=== PATIENT | male | born 1955 | race Caucasian/White ===

== ENCOUNTER 2016-08-11 15:13 | Inpatient (IN) | payer OTHER ==
[~2016-08-11] VITALS: Ht 193 cm; Wt 90.7 kg
--- NOTE | 2016-08-12 10:30 | NUR ---
PRE ASSESSMENT NOTE: 60 yo male admitted to [facility] with opiate and benzo dependence. Pt is alert and oriented X4. Color good, skin warm and dry. Respirations even and unlabored. Vital signs: B/P 111/72 P: 58 RR: 16 T: 98.2 Pulse OX: 100% NKA No seizure history Substance use: Klonopin 4-5 1mg tabs per day X 1 year Last use today 1mg this AM Oxycontin 20mg tabs 7-10 pills per day X 1year Last use 17 Denies ETOH use and does not smoke
[2016-08-12] MEDS ORDERED: VITA150T PO (10:57)
[2016-08-12] MEDS ORDERED: BETA60LO5 TP (10:57)
[2016-08-12] MEDS ORDERED: CLON1TAB4 PO (10:57)
[2016-08-12] MEDS ORDERED: ENAL10TA PO (10:57)
[2016-08-12] MEDS ORDERED: OXYC20TA58 PO (10:57)
[2016-08-12] MEDS ORDERED: UBID100C13 PO (10:57)
[2016-08-12] MEDS ORDERED: WARF4TAB6 PO (10:57)
[2016-08-12] MEDS ORDERED: ASCO-371 PO (10:57)
[2016-08-12] MEDS ORDERED: DULO30CA2 PO (10:57)
[2016-08-12] MEDS ORDERED: CARV25TA PO (10:57)
[2016-08-12] MEDS ORDERED: OMEP20CA10 PO (10:57)
[2016-08-12] MEDS ORDERED: TEST1.25 TD (10:57)
[2016-08-12] MEDS ORDERED: MULT-331 PO (10:57)
[2016-08-12] MEDS ORDERED: GABA-532 PO (10:57)
[2016-08-12] MEDS ORDERED: GUAI-175 PO (10:57)
[2016-08-12] MEDS ORDERED: TRAZ-147 PO (10:57)
[2016-08-12] MEDS ORDERED: PROC25SU2 RC (10:59)
--- NOTE | 2016-08-12 11:00 | NUR ---
ADMISSION NOTE: Pt is a 60 yo male admitted under the care of Dr. Moreira for opiate and benzo dependence. Pt is alert and oriented X4. Color good, skin warm and dry. Respirations even and unlabored. VS: B/P 111/72 P: 58 T: 98.2 RR: 16 Pulse OX: 100% Initial CIWA 5 COWS 4. Pt does not appear to be withdrawing at this time. Pt is 6 feet 4 inches tall. 200 pounds. Medical history of anxiety and heart valve replacement 9 years ago, for which, he is on Coumadin. Also had hand and right arm surgery "years ago" while playing football. Denies a seizure history. NKA Denies having a PCP. States he goes to a [facility] [place] clinic. Skin is intact. Denies having a family history of substance abuse. Substance use: Klonopin for 9 years. For past year has been taking 4-5 1mg pills/day Last use 1mg this AM Oxycontin for 6 year. For past year 7-10 20mg pills/day. Last use 40mg 08-12-16 Denies ETOH use Does not smoke
[2016-08-12] MEDS ORDERED: ACETAMINOPHEN 325 MG TABLET PO PRN (11:30)
[2016-08-12] MEDS ORDERED: ONDANSETRON 4 MG/2 ML VIAL IM PRN (11:30)
[2016-08-12] MEDS ORDERED: LOPERAMIDE HCL 2 MG CAPSULE PO PRN ×2 (11:30)
[2016-08-12] MEDS ORDERED: MAGNESIUM HYDROXIDE 30 ML LIQUID UDC PO PRN (11:30)
[2016-08-12] MEDS ORDERED: LORAZEPAM 1 MG TABLET PO PRN ×2 (11:30)
[2016-08-12] MEDS ORDERED: LORAZEPAM 2 MG/1 ML VIAL IM PRN (11:30)
[2016-08-12] MEDS ORDERED: MIRALAX 17 GM POWD.PACK PO PRN (11:30)
[2016-08-12] MEDS ORDERED: IBUPROFEN 600 MG TABLET PO PRN (11:30)
[2016-08-12] MEDS ORDERED: MAG HYDROX/AL HYDROX/SIMETH 30 ML LIQUID UDC PO PRN (11:30)
[2016-08-12] MEDS ORDERED: diphenhydrAMINE 50 MG CAPSULE PO PRN (11:30)
[2016-08-12] MEDS ORDERED: DICYCLOMINE HCL 20 MG TABLET PO PRN (11:30)
[2016-08-12 12:12] LABS: *AMPHETAMINE, URINE NEGATIVE (NEGATIVE); *BARBITURATE, URINE NEGATIVE (NEGATIVE); *CANNABINOID, URINE NEGATIVE (NEGATIVE); *COCCAINE, URINE NEGATIVE (NEGATIVE); *OPIATE, URINE POSITIVE (NEGATIVE); *PHENCYCLIDINE SCREEN,URINE NEGATIVE (NEGATIVE)
--- NOTE | 2016-08-12 13:00 | NUR ---
Clonidine 0.1mg po prn and Robaxin 750mg po prn given for withdrawal symptoms.
[2016-08-12 13:07] LABS: BASOPHILS # (AUTO) 0.1 K/uL (0.0-8.0); EOSINOPHILS # (AUTO) 0.2 K/uL (0.0-0.7); EOSINOPHILS % (AUTO) 2.7 % (0.0-7.0); HEMATOCRIT 40.3 % (40-50); LYMPHOCYTES # (AUTO) 1.5 K/UL (0.8-4.8); LYMPHOCYTES % (AUTO) 22.4 % (20.5-51.5); MEAN CORPUSCULAR HEMOGLOBIN 28.4 UUG (27.0-31.0); MEAN CORPUSCULAR HGB CONC 32 g/dL (32.0-37.0); MEAN CORPUSCULAR VOLUME 87.9 FL (82.0-92.0); MONOCYTES # (AUTO) 0.4 K/UL (0.1-1.30); MONOCYTES % (AUTO) 5.9 % (0.0-11.0); NEUTROPHILS # (AUTO) 4.7 K/UL (1.8-8.9); PLATELET COUNT (AUTO) 225 K/UL (150-450); RED BLOOD CELL COUNT(AUTO) 4.59 MIL/UL (4.7-6.1); WHITE BLOOD COUNT (AUTO) 6.9 K/UL (4.0-11.2)
[2016-08-12] MEDS: METHOCARBAMOL 750 MG TABLET PO PRN ×2 (13:09→21:24)
[2016-08-12] MEDS: CLONIDINE HCL 0.1 MG TABLET PO PRN (13:09)
[2016-08-12 13:35] LABS: ETHANOL < 3 MG/DL (0-0)
[2016-08-12 13:39] LABS: ALANINE AMINOTRANSFERASE 17 U/L (16-63); ALBUMIN 3.6 g/dL (3.4-5.0); ALKALINE PHOSPHATASE 77 U/L (50-136); ASPARTATE AMINOTRANSFERASE 19 U/L (15-37); BILIRUBIN,TOTAL 0.3 mg/dL (0.2-1.0); CALCIUM 8.9 mg/dL (8.5-10.1); CARBON DIOXIDE 27 mmol/L (21-32); CHLORIDE 107 mmol/L (98-107); CREATININE 1.2 mg/dL (0.6-1.3); GFR 62 mL/min (>60); GLUCOSE 110 mg/dL (74-106); POTASSIUM 3.4 mmol/L (3.5-5.1); SODIUM SERUM 143 mmol/L (136-145); TOTAL PROTEIN, SERUM 6.7 g/dL (6.4-8.2); UREA NITROGEN, BLOOD 14 mg/dL (7-18)
--- NOTE | 2016-08-12 14:00 | NUR ---
Pt states feels "slightly improved" after Robaxin and Clonidine prn.
[2016-08-12 14:07] VITALS: BP 127/67
[2016-08-12 14:14] LABS: HIV-1 p24 ANTIGEN NON REACTIVE (NONREACTIVE); HIV-1/2 ANTIBODY NON REACTIVE (NONREACTIVE)
--- NOTE | 2016-08-12 15:00 | NUR ---
Pt sleeping at this time.
[2016-08-12] MEDS: GABAPENTIN 300 MG CAPSULE PO SCH (15:39)
[2016-08-12] MEDS: BUPRENORPHINE HCL 2 MG TAB.SUBL SL PRN (16:33)
[2016-08-12] MEDS: CARVEDILOL 25 MG TABLET PO SCH (16:38)
--- NOTE | 2016-08-12 16:41 | NUR ---
COWS 16 and CIWA 17 Pt c/o stomach cramps. sweating, chills, muscle aches and anxiety. Subutex 4mg sl prn and Ativan 2mg po prn administered.
[2016-08-12] MEDS ORDERED: WARFARIN SODIUM 4 MG TABLET PO SCH (17:00)
--- NOTE | 2016-08-12 17:05 | NUR ---
VTE 2 Pumps at bedside
--- NOTE | 2016-08-12 17:35 | NUR ---
Pt feels improved after Subutex and Ativan prn. Repeat COWS 10 and CIWA 12
[2016-08-12 17:41] VITALS: BP 130/72
[2016-08-12] MEDS ORDERED: TRAZODONE 100 MG TABLET PO PRN (17:45)
--- NOTE | 2016-08-12 18:50 | NUR ---
END OF SHIFT NOTE: Report given to night manager nurse .Pt is a 60 yo male admitted under the care of Dr. Moreira for opiate and benzo dependence. Pt is alert and oriented X4. Color good, skin warm and dry. Respirations even and unlabored. Subutex 4mg sl prn and Ativan 2mg po prn administered @ 1640. Pt to start Subutex and Ativan tapers in AM. Safety precautions observed. Call light within reach.
--- NOTE | 2016-08-12 19:15 | NUR ---
Start of Shift Note: Patient is a 60 y/o male admitted today 08/12/16 for Opiate and Benzo dependence. Patient reported using Klonopin 4-6mg daily and Oxycontin 140-200mg daily for 1 year. Patient has Anxiety and past medical history of Heart Valve replacement 9 years ago. Fall & Seizure precaution. Patient is on a regular diet with no known food and drug allergies. Full code status. Patient to be started on Ativan and Subutex taper. Patient was given PRN Subutex, Ativan, Clonidine, Robaxin & Bentyl during day shift. Patient's last COWS 10 CIWA 12. Patient is alert & oriented x4. No shortness of breath noted. Respiration even & unlabored. Abdomen soft & non-distended. Pt complains of nausea with no episode of vomiting noted. Patient with complaints of 5/10 body aches, runny nose, stomach cramps, & mild headache. Patient appears flushed and anxious. Slight bilateral hand tremors noted. Pt denies hallucinations. Safety precautions are in place. Bed locked in lowest position. Both side rails up. Call light within pt's reach. Will continue to monitor.
[2016-08-12 20:00] VITALS: BP 141/77
[2016-08-12] MEDS ORDERED: GABAPENTIN 300 MG CAPSULE PO SCH (21:00)
[2016-08-12] MEDS ORDERED: LORAZEPAM 1 MG TABLET PO SCH (21:00)
[2016-08-12] MEDS: ONDANSETRON ODT 4 MG TAB.RAPDIS SL PRN (21:24)
[2016-08-12] MEDS: ASPIRIN/ACETAMINOPHEN/CAFFEINE TABLET PO PRN (21:24)
--- NOTE | 2016-08-12 21:24 | NUR ---
PRN Administration Patient complains of mild headache, 5/10 body aches & nausea. No episode of vomiting noted. Patient appears restless in bed. PRN Excedrin, Robaxin & Zofran administered as ordered. Will continue to monitor.
--- NOTE | 2016-08-12 22:24 | NUR ---
PRN Reassessment Patient verbalized improved nausea & slight relief in body discomfort and headache. Will continue to monitor patient.
--- NOTE | 2016-08-12 22:49 | NUR ---
Prn Administered Patient complains of nausea, chills, stomach cramps, body discomfort, runny nose, moist eyes & anxiety. Patient appears restless & anxious. Bilateral hand tremors noted. COWS 12 noted. B/P 123/71, HR 71 noted. Pt also requested for medication to help him sleep. PRN Subutex & Trazodone administered as ordered. Will reassess in 1 hour. Will continue to monitor patient.
[2016-08-12 22:58] VITALS: BP 123/71
[2016-08-12] MEDS ORDERED: POTASSIUM CHLORIDE 20 MEQ TAB.PRT.SR PO ONE (23:00)
--- NOTE | 2016-08-12 23:49 | NUR ---
PRN Reassessment Patient lying in bed with eyes closed. Patient appears comfortable with no s/s of distress noted. Respiration even & unlabored. COWS 3 CIWA 2 noted at this time. Will continue to monitor patient.
[2016-08-13 04:00] VITALS: BP 119/58
[2016-08-13] MEDS: BUPRENORPHINE HCL 2 MG TAB.SUBL SL PRN (04:50)
[2016-08-13] MEDS: HYDROXYZINE PAMOATE 25 MG CAPSULE PO PRN (05:26)
[2016-08-13] MEDS: METHOCARBAMOL 750 MG TABLET PO PRN ×2 (05:26→21:47)
--- NOTE | 2016-08-13 05:26 | NUR ---
PRN Administration Patient complains of body aches and anxiety. PRN Robaxin & Vistaril administered as ordered. Will continue to monitor.
[2016-08-13] MEDS: PANTOPRAZOLE SODIUM 40 MG TABLET.DR PO SCH (06:49)
--- NOTE | 2016-08-13 06:56 | NUR ---
Start of Shift Note: Patient is a 60 y/o male admitted for Opiate and Benzo dependence. Patient has Anxiety & Heart Valve Replacement. Patient is on a regular diet with no known food and drug allergies. Patient started on Ativan taper last night and to be started on a Subutex taper today at 9am. Pt was complaining of withdrawals last night with a COWS score of 12. PRN Subutex was given last night @ 2249 and was effective. Pt reported that medication was effective in controlling his withdrawals symptoms. Pt was also given PRN Excedrin, Robaxin x2, Vistaril, & Trazodone and were effective. Last COWS 5 CIWA 5. Pt remained stable and vitals remains WNL. Pt was able to sleep for a total of 5 hours. Pt consumed 1447ml of fluids. Voided 2x with no bowel movement noted. All needs attended & met. Safety precautions are in place. Will continue to monitor patient. Addendum: 08/14/16 at 0530 by AURY EVANS RN END OF SHIFT
--- NOTE | 2016-08-13 07:30 | NUR ---
Start of shift note; Received report from night nurse. Patient is a 60 year old male admitted on 08/12/16 for Benzo and Opiate dependence. Patient was placed on Subutex and Ativan taper to start today. Patient reported history of anxiety and heart Valve replacement 9 years ago, currently on Coumadin. Patient received RPN medications last night, all noted to be effective. Patient last COWS is 6 and last CIWA is 4 at 0400. NKA, regular diet and on a regular diet. Patient is on fall and seizure precaution. Bed in lowest position, call light within reach. Will continue to monitor patient.
[2016-08-13 08:00] VITALS: BP 113/67
[2016-08-13] MEDS: GABAPENTIN 300 MG CAPSULE PO SCH ×3 (08:48→21:47)
[2016-08-13] MEDS: DOCUSATE SODIUM 250 MG CAPSULE PO SCH (08:49)
[2016-08-13] MEDS: BUPRENORPHINE HCL 2 MG TAB.SUBL SL SCH ×4 (08:49→21:47)
[2016-08-13] MEDS: MULTIVITAMINS,THERAPEUTIC TABLET PO SCH (08:49)
[2016-08-13] MEDS: CARVEDILOL 25 MG TABLET PO SCH ×2 (08:49→17:27)
[2016-08-13] MEDS: LORAZEPAM 1 MG TABLET PO SCH ×3 (08:49→21:46)
[2016-08-13] MEDS ORDERED: ENALAPRIL 10 MG TABLET PO SCH (09:00)
[2016-08-13] MEDS ORDERED: 5 DAY TAPER BUPRENORPHINE -SERENITY PROTOCOL SL PRN (09:00)
[2016-08-13] MEDS ORDERED: Medication Not On Formulary EA (Omeprazole 1 CAP) PO SCH (09:00)
[2016-08-13] MEDS ORDERED: TUBERCULIN,PURIF.PROT.DERIV. 5 TU/0.1 ML TEST ID ONE (09:00)
[2016-08-13] MEDS ORDERED: WARFARIN SODIUM 4 MG TABLET PO SCH ×3 (09:00→17:00)
[2016-08-13] MEDS: DULOXETINE 30 MG CAPSULE.DR PO SCH (09:49)
[2016-08-13 12:00] VITALS: BP 140/61
[2016-08-13 12:07] LABS: HCV AB <0.1 s/co ratio (0.0-0.9); HEPATITIS B CORE AB, IgM Negative (Negative); HEPATITIS B SURFACE AG Negative (Negative)
[2016-08-13] MEDS: ASPIRIN/ACETAMINOPHEN/CAFFEINE TABLET PO PRN ×2 (12:59→21:47)
--- NOTE | 2016-08-13 13:04 | NUR ---
PRN medication; Patient is complaining of migraine headache. PRN Excedrin given as per MD order. Will continue to monitor for effectiveness of medication.
--- NOTE | 2016-08-13 14:04 | NUR ---
Re-assessment; Patient denies headache at this time. Will continue to monitor patient. Addendum: 08/13/16 at 1525 by KELSY VILCHIS LVN PRN medication is effective.
[2016-08-13] MEDS ORDERED: POTASSIUM CHLORIDE 20 MEQ TAB.PRT.SR PO ONE (14:15)
--- NOTE | 2016-08-13 14:22 | NUR ---
K-dur order; ordered K-DUR 20meq to supplement patient's potassium. Order given to patient.
[2016-08-13 16:00] VITALS: BP 129/72
[2016-08-13] MEDS ORDERED: WARFARIN SODIUM 3 MG TABLET PO SCH (17:00)
[2016-08-13] MEDS ORDERED: WARFARIN SODIUM 5 MG TABLET PO SCH (17:00)
--- NOTE | 2016-08-13 17:50 | NUR ---
Therapist informed client of group therapy times. Client refused to come to group because he is not feeling well.
--- NOTE | 2016-08-13 18:50 | NUR ---
End of shift note; Patient is AOX4.Patient is a 60 year old male admitted on 08/12/16 for Benzo and Opiate dependence. Patient was placed on Subutex and Ativan taper to start today. Patient reported history of anxiety and heart Valve replacement 9 years ago, currently on Coumadin. Patient last COWS is 8 and last CIWA is 7 at 1600. NKA, regular diet and on a regular diet. Patient is on fall and seizure precaution. Bed in lowest position, call light within reach. Patient remained compliant with treatment plan, medications were effective in reducing withdrawal symptoms. Met all needs.
--- NOTE | 2016-08-13 19:15 | NUR ---
Start of Shift Note: Patient is a 60 y/o male admitted today 08/12/16 for Opiate and Benzo dependence. Patient reported using Klonopin 4-6mg daily and Oxycontin 140-200mg daily for 1 year. Patient has Anxiety and past medical history of Heart Valve replacement 9 years ago. Fall & Seizure precaution. Patient is on a regular diet with no known food and drug allergies. Full code status. Patient is on Ativan and Subutex taper and tolerating well. Patient was given PRN Excedrin during day shift. Patient's last COWS 8 CIWA 7. Patient is alert & oriented x4. No shortness of breath noted. Respiration even & unlabored. Abdomen soft & non-distended. Pt complains of nausea with no episode of vomiting noted. Patient with complaints of 5/10 body aches, & mild headache. Slight bilateral hand tremors noted. Pt denies hallucinations. Safety precautions are in place. Bed locked in lowest position. Both side rails up. Call light within pt's reach. Will continue to monitor.
--- NOTE | 2016-08-13 19:27 | NUR ---
Communication: Pt requested to increase his Trazodone dose for sleep because it was ineffective last night. Pt currently on 100mg Trazodone PO HSPRN. MD made aware with new order to increase dose to 200mg Trazodone PO HSPRN. New orders noted and carried out.
[2016-08-13] MEDS ORDERED: TRAZODONE 100 MG TABLET PO PRN (19:30)
[2016-08-13 20:00] VITALS: BP 132/74
[2016-08-13] MEDS: ONDANSETRON ODT 4 MG TAB.RAPDIS SL PRN (21:47)
--- NOTE | 2016-08-13 21:47 | NUR ---
PRN Administration Patient complains of nausea, mild headache & 5/10 generalized body aches. PRN Zofran, Excedrin and Robaxin administered as ordered. Will reassess in 1 hour. Will continue to monitor.
--- NOTE | 2016-08-13 22:47 | NUR ---
PRN Reassessment Patient verbalized improved nausea & relief from headache & body aches. Patient lying in bed and appears comfortable. No s/s of distress noted. Will continue to monitor patient.
[2016-08-14] VITALS: BP_SYST 130; BP_SYST 132; BP_DIAS 74; BP_DIAS 77
[2016-08-14 04:00] VITALS: BP 114/62
[2016-08-14] MEDS: ASPIRIN/ACETAMINOPHEN/CAFFEINE TABLET PO PRN ×2 (06:13→16:55)
--- NOTE | 2016-08-14 06:13 | NUR ---
PRN Excedrin Patient complains of 6/10 headache. Patient noted to be restless with facial grimacing noted. PRN Excedrin administered as ordered. Will reassess in 1 hour. Will continue to monitor.
[2016-08-14] MEDS: PANTOPRAZOLE SODIUM 40 MG TABLET.DR PO SCH (06:17)
--- NOTE | 2016-08-14 07:13 | NUR ---
PRN Reassessment Patient verbalized relief from headache. Patient lying in bed and appears comfortable. No s/s of distress noted. Will continue to monitor patient.
--- NOTE | 2016-08-14 07:13 | NUR ---
End of Shift Note: Patient is a 60 y/o male admitted for Opiate and Benzo dependence. Patient has Anxiety & Heart Valve Replacement. Patient is on a regular diet with no known food and drug allergies. Patient is on Ativan taper & Subutex taper and tolerating well. Pt reported that medication was effective in controlling his withdrawals symptoms. Last COWS 3 CIWA 3. Pt was given PRN Excedrin, Robaxin & Zofran and were effective. Pt remained stable and vitals remains WNL. Pt remains compliant with medications, treatment diet regimen. Pt was able to sleep for a total of 7 hours. Pt consumed 592 ml of fluids. Voided 1x with no bowel movement noted. All needs attended & met. Safety precautions are in place. Will continue to monitor patient.
--- NOTE | 2016-08-14 07:52 | NUR ---
Start of shift note; Received report from night nurse. Patient is a 60 year old male admitted on 08/12/16 for Benzo and Opiate dependence. Patient was placed on Subutex and Ativan taper, no adverse reactions. Patient reported history of anxiety and heart Valve replacement 9 years ago, currently on Coumadin. Patient received RPN medications last night, all noted to be effective. NKA, regular diet and on a regular diet. Patient is on fall and seizure precaution. Bed in lowest position, call light within reach. Will continue to monitor patient.
[2016-08-14 08:00] VITALS: BP 131/74
[2016-08-14] MEDS: DULOXETINE 30 MG CAPSULE.DR PO SCH (08:31)
[2016-08-14] MEDS: GABAPENTIN 300 MG CAPSULE PO SCH ×3 (08:32→20:46)
[2016-08-14] MEDS: ENALAPRIL 5 MG TABLET PO SCH (08:32)
[2016-08-14] MEDS: LORAZEPAM 1 MG TABLET PO SCH ×4 (08:32→20:46)
[2016-08-14] MEDS: MULTIVITAMINS,THERAPEUTIC TABLET PO SCH (08:32)
[2016-08-14] MEDS: CARVEDILOL 25 MG TABLET PO SCH ×2 (08:32→16:55)
[2016-08-14] MEDS: BUPRENORPHINE HCL 2 MG TAB.SUBL SL SCH ×3 (08:32→20:46)
[2016-08-14] MEDS: DOCUSATE SODIUM 250 MG CAPSULE PO SCH (08:32)
[2016-08-14] MEDS ORDERED: ENALAPRIL 10 MG TABLET PO SCH (09:00)
[2016-08-14 12:00] VITALS: BP 109/56
[2016-08-14 16:00] VITALS: BP 139/72
--- NOTE | 2016-08-14 16:55 | NUR ---
PRN medication; Patient is complaining of migraine headache, PRN Excedrin PO given as ordered. Will continue to monitor patient.
[2016-08-14] MEDS: WARFARIN SODIUM 4 MG TABLET PO SCH (16:56)
[2016-08-14] MEDS ORDERED: WARFARIN SODIUM 3 MG TABLET PO SCH (17:00)
--- NOTE | 2016-08-14 17:55 | NUR ---
Re-assessment; PRN denies migraine headache, PRN medication is effective.
--- NOTE | 2016-08-14 18:25 | NUR ---
End of shift note; Patient is AOX4.Patient is a 60 year old male admitted on 08/12/16 for Benzo and Opiate dependence. Patient was placed on Subutex and Ativan taper to start today. Patient reported history of anxiety and heart Valve replacement 9 years ago, currently on Coumadin. Patient last COWS is 3 and last CIWA is 2 at 1600. NKA, regular diet and on a regular diet. Patient is on fall and seizure precaution. Bed in lowest position, call light within reach. Patient remained compliant with treatment plan, medications were effective in reducing withdrawal symptoms. Met all needs.
--- NOTE | 2016-08-14 19:15 | NUR ---
Start of Shift Note: Patient is a 60 y/o male admitted on 08/12/16 for Opiate and Benzo dependence. Patient reported using Klonopin 4-6mg daily and Oxycontin 140-200mg daily for 1 year. Patient has Anxiety and past medical history of Heart Valve replacement 9 years ago. Fall & Seizure precaution. Patient is on a regular diet with no known food and drug allergies. Full code status. Patient is on Ativan and Subutex taper and tolerating well. Patient was given PRN Excedrin during day shift. Patient's last COWS 3 CIWA 2. Patient is alert & oriented x4. No shortness of breath noted. Respiration even & unlabored. Abdomen soft & non-distended. No nausea noted. Patient with complaints of 8/10 body aches, sweating & chills. Slight bilateral hand tremors noted. Pt denies hallucinations. Safety precautions are in place. Bed locked in lowest position. Both side rails up. Call light within pt's reach. Will continue to monitor.
[2016-08-14 20:00] VITALS: BP 146/73
[2016-08-14] MEDS: METHOCARBAMOL 750 MG TABLET PO PRN (20:46)
--- NOTE | 2016-08-14 20:46 | NUR ---
PRN Robaxin Patient complains of 8/10 body aches. Patient appears restless with facial grimacing noted. PRN Robaxin administered as ordered. Will reassess in 1 hour. Will continue to monitor patient.
--- NOTE | 2016-08-14 21:46 | NUR ---
PRN Reassessment Patient verbalized relief from body aches. 3/10 pain noted at this time. Will continue to monitor patient.
[2016-08-14] MEDS: TRAZODONE 100 MG TABLET PO PRN (22:09)
--- NOTE | 2016-08-14 22:09 | NUR ---
PRN Trazodone Patient c/o unable to fall asleep. Patient requested medication for sleep. PRN Trazodone administered as ordered. Will continue to monitor patient.
[2016-08-15] VITALS: BP 100/49
[2016-08-15] MEDS: HYDROXYZINE PAMOATE 25 MG CAPSULE PO PRN (01:28)
--- NOTE | 2016-08-15 01:28 | NUR ---
PRN Vistaril Patient complains of anxiety. Patient appears anxious and restless. PRN Vistaril administered as ordered. Will reassess in 1 hour. Will continue to monitor patient.
--- NOTE | 2016-08-15 02:28 | NUR ---
PRN Reassessment Patient asleep in bed and appears comfortable. No s/s of distress noted. Safety precautions are in place. Will continue to monitor patient.
[2016-08-15] MEDS: PANTOPRAZOLE SODIUM 40 MG TABLET.DR PO SCH (06:02)
[2016-08-15] MEDS: METHOCARBAMOL 750 MG TABLET PO PRN ×2 (06:02→12:44)
--- NOTE | 2016-08-15 06:02 | NUR ---
PRN Robaxin Patient complains of 6/10 body aches. PRN RObaxin administered as ordered. [facility]
[2016-08-15 06:06] VITALS: BP 119/58
--- NOTE | 2016-08-15 07:02 | NUR ---
PRN Reassessment Pt verbalized relief from body aches. Pt lying in bed and appears comfortable. No s/s of distress noted. Safety precautions are in place. Will continue to monitor patient.
--- NOTE | 2016-08-15 07:04 | NUR ---
End of Shift Note: Pt is a 60 y/o male admitted for Opiate & Benzo dependence. Pt had an uneventful night. Pt continued on a Subutex & Ativan taper. Pt reported some sweating, chills, Anxiety & body aches last night. Pt received his taper and reported that taper medication is effective in controlling withdrawal symptoms. Last COWS 4 noted. Pt received PRN Robaxin x2, Vistaril & Trazodone and were effective. Pt remained stable and vitals remains WNL. Pt attended H&I last night. Pt remains compliant with medications as ordered. Pt slept for a total of 7 hours. Pt consumed 855ml of fluids. Voided 1x with no bowel movement. Encourage pt to increase fluid intake. All needs attended & met. Safety precautions are in place. Will endorse pt to day shift nurse.
--- NOTE | 2016-08-15 07:33 | NUR ---
START OF SHIFT NOTE: Received report from caustic cresylate shift superintendent nurse. Patient is a 60 y/o male admitted 08/12/16 for Opiate and Benzo dependence. Pt is on a 5 day Subutex and 5 day Ativan taper. Tolerating well. Pt is alert and oriented X4. Color good, skin warm and dry. Respirations even and unlabored. Pt resting in bed. Safety precautions observed. Call light within reach. Will continue to monitor.
[2016-08-15 08:00] VITALS: BP 135/75
[2016-08-15] MEDS: MULTIVITAMINS,THERAPEUTIC TABLET PO SCH (08:18)
[2016-08-15] MEDS: DULOXETINE 30 MG CAPSULE.DR PO SCH (08:19)
[2016-08-15] MEDS: CARVEDILOL 25 MG TABLET PO SCH ×2 (08:19→17:02)
[2016-08-15] MEDS: GABAPENTIN 300 MG CAPSULE PO SCH ×3 (08:19→20:53)
[2016-08-15] MEDS: DOCUSATE SODIUM 250 MG CAPSULE PO SCH (08:20)
[2016-08-15] MEDS: LORAZEPAM 1 MG TABLET PO SCH ×3 (08:20→20:53)
[2016-08-15] MEDS: ENALAPRIL 5 MG TABLET PO SCH (08:21)
[2016-08-15] MEDS ORDERED: BUPRENORPHINE HCL 2 MG TAB.SUBL SL SCH (09:00)
--- NOTE | 2016-08-15 09:00 | NUR ---
VSS CIWA 6 COWS 7 c/o anxiety, tremors, sweating
[2016-08-15 09:04] LABS: *TESTOSTERONE, SERUM 730 ng/dL (348-1197)
[2016-08-15] MEDS: ASPIRIN/ACETAMINOPHEN/CAFFEINE TABLET PO PRN (12:43)
--- NOTE | 2016-08-15 12:45 | NUR ---
Pt c/o body aches and headache. Robaxin 750mg po prn and Excedrin 2 tabs prn given
[2016-08-15] MEDS ORDERED: PNEUMOCOCCAL 23-VAL P-SAC VAC 0.5 ML VIAL IM ONE (13:00)
[2016-08-15 13:22] VITALS: BP 130/70
--- NOTE | 2016-08-15 13:45 | NUR ---
Pt feels improved after Excedrin and Robaxin prn. Headache gone and muscle aches diminished.
[2016-08-15] MEDS: BUPRENORPHINE HCL 2 MG TAB.SUBL SL SCH ×2 (14:37→20:54)
--- NOTE | 2016-08-15 14:39 | NUR ---
VSS COWS 3 CIWA 5 c/o anxiety, sweating and muscle aches.
[2016-08-15] MEDS ORDERED: ASPIRIN/ACETAMINOPHEN/CAFFEINE TABLET PO PRN (15:00)
[2016-08-15] MEDS: WARFARIN SODIUM 4 MG TABLET PO SCH (17:04)
[2016-08-15 17:31] VITALS: BP 134/78
--- NOTE | 2016-08-15 18:41 | NUR ---
END OF SHIFT NOTE: Report given to shift superintendent nurse. Patient is a 60 y/o male admitted 08/12/16 for Opiate and Benzo dependence. Pt is on a 5 day Subutex and 5 day Ativan taper. Tolerating well. Pt is alert and oriented X4. Color good, skin warm and dry. Respirations even and unlabored. Vital signs have remained stable throughout shift. Last CIWA 6 COWS 3 @ 1500. Robaxin 750mg po prn and Excedrin 2 tabs prn given @ 1245. Pt resting in bed. Safety precautions observed. Call light within reach.
[2016-08-15 20:00] VITALS: BP 132/63
--- NOTE | 2016-08-15 20:00 | NUR ---
Start of Shift Patient is a 60-year old, male, admitted for Opiate and Benzo dependence. Placed on a 5-day Subutex and 4-day Ativan taper, both started on 08/13/2016 and with no adverse side effects noted. With PMHx of Anxiety and Heart Valve Replacement in 2007. Pt on Coumadin and PT/INR checked daily while inpatient. Pt with NKA, is on Regular Diet and Full Code. Pt is AAOx4, with mild anxiety noted at this time. No SOB noted, not in respi distress. Pt is ambulatory with steady gait and with intact skin. Fall, universal and safety prec in place. Call light within reach. Kept pt warm, dry and comfortable. All needs met. Latest COWS=3, CIWA=3. Will continue to monitor. Addendum: 08/16/16 at 0234 by WILLIAM FIELDS RN Additional info: Pt with SCD pumps at bedside but refused to be attached to it despite explanation of risks and benefits.
[2016-08-16] VITALS: BP 125/65
[2016-08-16 04:00] VITALS: BP 130/66
[2016-08-16] MEDS: METHOCARBAMOL 750 MG TABLET PO PRN ×4 (05:46→23:20)
[2016-08-16] MEDS: ASPIRIN/ACETAMINOPHEN/CAFFEINE TABLET PO PRN ×2 (05:46→12:15)
--- NOTE | 2016-08-16 05:48 | NUR ---
RN note reassess Pt c/o generalized muscle pain=09/04 and migraine headache=10/04. Administered Robaxin 750 mg PO and Excedrin Extra Strength 2 tabs PO as ordered. Will reassess. Addendum: 08/16/16 at 0700 by WILLIAM FIELDS RN RN note PRN Robaxin and Excedrin Extra Strength
[2016-08-16] MEDS: PANTOPRAZOLE SODIUM 40 MG TABLET.DR PO SCH (06:01)
--- NOTE | 2016-08-16 06:48 | NUR ---
RN note reassess Pt verbalized that both generalized muscle pain and migraine pain level=2-3/10. Effective.
--- NOTE | 2016-08-16 07:05 | NUR ---
End of Shift Patient is a 60-year old, male, admitted for Opiate and Benzo dependence. Placed on a 5-day Subutex and 4-day Ativan taper, both started on 08/13/2016 and with no adverse side effects noted. With PMHx of Anxiety and Heart Valve Replacement in 2007. Pt on Coumadin and PT/INR checked daily while inpatient. Pt with NKA, is on Regular Diet and Full Code. Pt is AAOx4, with mild anxiety noted at this time. No SOB noted, not in respi distress. Pt is ambulatory with steady gait and with intact skin. Fall, universal and safety prec in place. Call light within reach. Kept pt warm, dry and comfortable. All needs met. Latest COWS=2, CIWA=2, slept for 6 hours. Endorsed to AM shift nurse for continuity of care.
--- NOTE | 2016-08-16 07:42 | NUR ---
START OF SHIFT NOTE: Received report from machinist 2nd shift nurse. Patient is a 60 y/o male admitted 08/12/16 for Opiate and Benzo dependence. Pt is on a 5 day Subutex and 5 day Ativan taper. Tolerating well. Pt is alert and oriented X4. Color good, skin warm and dry. Respirations even and unlabored. Pt resting in bed. Safety precautions observed. Call light within reach. Will continue to monitor.
[2016-08-16 08:00] VITALS: BP 164/87
[2016-08-16] MEDS: LORAZEPAM 1 MG TABLET PO SCH ×2 (08:34→21:50)
[2016-08-16] MEDS: DULOXETINE 30 MG CAPSULE.DR PO SCH (08:34)
[2016-08-16] MEDS: DOCUSATE SODIUM 250 MG CAPSULE PO SCH (08:34)
[2016-08-16] MEDS: GABAPENTIN 300 MG CAPSULE PO SCH ×3 (08:34→21:50)
[2016-08-16] MEDS: MULTIVITAMINS,THERAPEUTIC TABLET PO SCH (08:34)
[2016-08-16] MEDS: CARVEDILOL 25 MG TABLET PO SCH ×2 (08:35→16:54)
[2016-08-16] MEDS: BUPRENORPHINE HCL 2 MG TAB.SUBL SL SCH ×3 (08:35→21:50)
[2016-08-16] MEDS: ENALAPRIL 5 MG TABLET PO SCH (08:36)
--- NOTE | 2016-08-16 08:39 | NUR ---
VSS COWS 4 CIWA 5 c/o sweating, anxiety and muscle aches. Resting in bed.
--- NOTE | 2016-08-16 12:15 | NUR ---
Pt c/o headache and muscle aches. Robaxin 750mg po prn and Excedrin 2 tabs po prn given
[2016-08-16 13:13] VITALS: BP 133/76
--- NOTE | 2016-08-16 13:15 | NUR ---
Pt states headache and muscle aches improved after Robaxin and Excedrin prn
--- NOTE | 2016-08-16 15:00 | NUR ---
VSS COWS 4 CIWA 5 c/o anxiety primarily
[2016-08-16] MEDS: WARFARIN SODIUM 4 MG TABLET PO SCH (16:56)
--- NOTE | 2016-08-16 17:00 | NUR ---
Robaxin 750mg po prn and Excedrin 1 tab po prn given for muscle aches and headache.
[2016-08-16 17:39] VITALS: BP 150/72
--- NOTE | 2016-08-16 18:06 | NUR ---
Pt states feels improved after Robaxin and Excedrin prn. Headache "gone" and muscle aches diminished.
--- NOTE | 2016-08-16 18:38 | NUR ---
END OF SHIFT NOTE: Report given to production supervisor off shift nurse. Patient is a 60 y/o male admitted 08/12/16 for Opiate and Benzo dependence. Pt is on a 5 day Subutex and 5 day Ativan taper. Tolerating well. Pt is alert and oriented X4. Color good, skin warm and dry. Respirations even and unlabored. Vital signs have remained stable throughout shift. Last CIWA 5 COWS 4 @ 1500. Robaxin 750mg po prn and Excedrin 2 tabs prn given @ 1215 and 1700. Pt resting in bed. Safety precautions observed. Call light within reach.
[2016-08-16 20:00] VITALS: BP 148/84
--- NOTE | 2016-08-16 20:00 | NUR ---
Start of Shift Patient is a 60-year old, male, admitted for Opiate and Benzo dependence. Placed on a 5-day Subutex and 4-day Ativan taper, both started on 08/13/2016 and with no adverse side effects noted. With PMHx of Anxiety and Heart Valve Replacement in 2007. Pt on Coumadin and PT/INR checked daily while inpatient. Pt with NKA, is on Regular Diet and Full Code. Pt is AAOx4, with mild anxiety noted at this time. No SOB noted, not in respi distress. Pt is ambulatory with steady gait and with intact skin. Fall, universal and safety prec in place. Call light within reach. All needs met. Pt with SCD pumps at bedside but refused to be attached to it despite explanation of risks and benefits. Latest COWS=3, CIWA=3. Will continue to monitor.
[2016-08-16] MEDS: TRAZODONE 100 MG TABLET PO PRN (21:52)
--- NOTE | 2016-08-16 21:52 | NUR ---
RN note PRN Trazodone Pt c/o sleeplessness. Administered Trazodone 200 mg PO as ordered. Will reassess.
--- NOTE | 2016-08-16 22:58 | NUR ---
RN note reassess Pt verbalized feeling sleepy and states "yes I think the medicine is doing what it's supposed to do." Trazodone effective.
--- NOTE | 2016-08-16 23:21 | NUR ---
RN note PRN Robaxin Pt c/o generalized muscle pain=6/10. Administered Robaxin 750 mg PO as ordered. Will reassess.
[2016-08-17] VITALS: BP 145/83
--- NOTE | 2016-08-17 00:30 | NUR ---
RN note reassess Pt asleep on bed, no SOB nor facial grimacing noted.
[2016-08-17 04:00] VITALS: BP 142/78
[2016-08-17] MEDS: PANTOPRAZOLE SODIUM 40 MG TABLET.DR PO SCH (06:20)
[2016-08-17] MEDS: ASPIRIN/ACETAMINOPHEN/CAFFEINE TABLET PO PRN ×3 (06:47→21:08)
[2016-08-17] MEDS: METHOCARBAMOL 750 MG TABLET PO PRN ×3 (06:47→21:09)
--- NOTE | 2016-08-17 06:47 | NUR ---
RN note PRN Robaxin and Excedrin ES Pt c/o generalized muscle pain=6/10 and migraine headache=/10. Administered Robaxin 750 mg PO and Excedrin Extra Strength 2 tabs PO as ordered. Will reassess.
--- NOTE | 2016-08-17 07:06 | NUR ---
End of Shift Patient is a 60-year old, male, admitted for Opiate and Benzo dependence. Placed on a 5-day Subutex and 4-day Ativan taper, both started on 08/13/2016 and with no adverse side effects noted. With PMHx of Anxiety and Heart Valve Replacement in 2007. Pt on Coumadin and PT/INR checked daily while inpatient. Pt with NKA, is on Regular Diet and Full Code. Pt is AAOx4, with mild anxiety noted at this time. No SOB noted, not in respi distress. Pt is ambulatory with steady gait and with intact skin. Fall, universal and safety prec in place. Call light within reach. All needs met. Pt with SCD pumps at bedside but refused to be attached to it despite explanation of risks and benefits. Latest COWS=3, CIWA=3, slept for 6 hours. Endorsed to AM shift nurse for continuity of care.
[2016-08-17 08:00] VITALS: BP 180/85
--- NOTE | 2016-08-17 08:00 | NUR ---
START OF SHIFT Pt 60 y/o male admitted for benzo and opioid dependence. Pt received in room with eyes closed resting, but easily arousable to name. Perrla. Skin warm and dry to touch. Respirations even and unlabored. Bilateral hand tremors noted slightly. It was reported that pt slept for 6 hours last night. Bed on lowest position with side rails x2 up for safety. Call light within reach. No distress noted at this time.
[2016-08-17] MEDS ORDERED: BUPRENORPHINE HCL 2 MG TAB.SUBL SL SCH (09:00)
[2016-08-17] MEDS: MULTIVITAMINS,THERAPEUTIC TABLET PO SCH (09:29)
[2016-08-17] MEDS: DULOXETINE 30 MG CAPSULE.DR PO SCH (09:29)
[2016-08-17] MEDS: DOCUSATE SODIUM 250 MG CAPSULE PO SCH (09:29)
[2016-08-17] MEDS: GABAPENTIN 300 MG CAPSULE PO SCH ×2 (09:29→14:31)
[2016-08-17] MEDS: CARVEDILOL 25 MG TABLET PO SCH ×2 (09:30→16:39)
[2016-08-17] MEDS: ENALAPRIL 5 MG TABLET PO SCH (09:30)
--- NOTE | 2016-08-17 10:00 | NUR ---
LABS PT=28.5 INR=2.77. Dr. Moreira made aware with no new orders and to continue to the coumadin 8mg scheduled for today at 1700.
[2016-08-17 12:00] VITALS: BP 180/87
[2016-08-17] MEDS ORDERED: WARF4TAB41 PO (12:03)
[2016-08-17] MEDS ORDERED: PANT40TA2 PO (12:03)
[2016-08-17] MEDS ORDERED: Gabapentin PO (12:03)
[2016-08-17] MEDS ORDERED: HYDR-3895 PO (12:03)
[2016-08-17] MEDS ORDERED: DICY20TA28 PO (12:03)
[2016-08-17] MEDS ORDERED: METH-33 PO (12:03)
[2016-08-17] MEDS ORDERED: Ondansetron SL (12:03)
--- NOTE | 2016-08-17 13:10 | NUR ---
PRN kb=463/97. Hydralazine po prn per MD order given and tolerated well.
[2016-08-17] MEDS: hydrALAZINE HCL 25 MG TABLET PO PRN ×2 (13:15→21:08)
--- NOTE | 2016-08-17 14:10 | NUR ---
PRN EVAL JY=435/84. Pt observed on bed watching television in room.
--- NOTE | 2016-08-17 15:15 | NUR ---
PRN Pt states has migrane. Excedrin po prn per MD order given and tolerated well.
--- NOTE | 2016-08-17 15:15 | NUR ---
PRN Pt states has generalized body aches 6/10. Robaxin po prn per MD order given and tolerated well.
[2016-08-17 16:00] VITALS: BP 188/98
--- NOTE | 2016-08-17 16:15 | NUR ---
PRN EVAL Pt states has pain level 1/10.
--- NOTE | 2016-08-17 16:15 | NUR ---
AKOSUA VERDUGO Pt states has no more migraine.
--- NOTE | 2016-08-17 16:30 | NUR ---
PRN Pt with bp =188/98. Catapres po prn per MD order given and tolerated well.
[2016-08-17] MEDS: CLONIDINE HCL 0.1 MG TABLET PO PRN ×2 (16:39→22:24)
[2016-08-17] MEDS: WARFARIN SODIUM 4 MG TABLET PO SCH (16:40)
--- NOTE | 2016-08-17 16:45 | NUR ---
PRN administration Pt has a BP of 189/98 HR of 90. Administered PRN clonidine. Primary nurse to follow up, Yunior is aware.
--- NOTE | 2016-08-17 17:30 | NUR ---
PRN EVAL Pt zy=869/88. Dr. Moreira made aware with new order for catapres 0.2mg po x1 dose , noted and carried out, and to notifiy Dr. Moreira if pt is still hypertensive after an hour.
[2016-08-17] MEDS ORDERED: CLONIDINE HCL 0.2 MG TABLET PO ONE (17:45)
--- NOTE | 2016-08-17 17:52 | NUR ---
PRN BG=794/88. Dr. Moreira aware with new order for catapres 0.2mg po x1 dose now and to recheck BP after an hour, noted and carried out.
--- NOTE | 2016-08-17 18:30 | NUR ---
VS LA=344/92 p=60.
--- NOTE | 2016-08-17 18:46 | NUR ---
END OF SHIFT Pt 60 y/o male admitted for benzo and opioid dependence. Pt alert and oriented to name, place, and time. Perrla. Skin warm and dry to touch. Respirations even and unlabored. Pt slightly anxious this morning. Pt observed mostly isolative to room throughout the day. Pt medication compliant and tolerated well. No ASE noted. Pt is scheduled to be discharged tomorrow. Bed on lowest position with side rails x2 up for safety. Call light within reach. No distress noted at this time.
[2016-08-17 20:00] VITALS: BP 162/93
[2016-08-17] MEDS ORDERED: GABAPENTIN 300 MG CAPSULE PO SCH (21:00)
--- NOTE | 2016-08-17 21:10 | NUR ---
RN note PRN Robaxin and Excedrin ES Pt c/o generalized muscle pain=6/10 and migraine headache=/. SK=058/93, P=58. Administered Robaxin 750 mg PO, Excedrin Extra Strength 2 tabs PO and Hydralazine 25 mg PO as ordered. Will reassess.
[2016-08-17 21:30] LABS: *AMPHETAMINE, URINE NEGATIVE (NEGATIVE); *BARBITURATE, URINE NEGATIVE (NEGATIVE); *CANNABINOID, URINE NEGATIVE (NEGATIVE); *COCCAINE, URINE NEGATIVE (NEGATIVE); *OPIATE, URINE NEGATIVE (NEGATIVE); *PHENCYCLIDINE SCREEN,URINE NEGATIVE (NEGATIVE)
--- NOTE | 2016-08-17 22:20 | NUR ---
RN note reassessed Pt verbalized generalized muscle pain and migraine pain level=/10. TC=498/86, P=58.
--- NOTE | 2016-08-17 22:52 | NUR ---
Clonidine was given at 22:40 for B /P 168/110, HR- 120. Breathing even, unlabored. Patient is alert, oriented, responsive. Will continue to monitor.
[2016-08-17] MEDS: TRAZODONE 100 MG TABLET PO PRN (23:20)
--- NOTE | 2016-08-17 23:21 | NUR ---
RN note PRN Trazodone Pt c/o sleeplessness. Administered Trazodone 200 mg PO as ordered. Will reassess.
[2016-08-18] VITALS: BP 157/89
--- NOTE | 2016-08-18 00:12 | NUR ---
RN note reassess Pt's HR=912/89, Pulse=58. Pt verbalized that Trazodone is starting to make him feel sleepy.
[2016-08-18] MEDS: METHOCARBAMOL 750 MG TABLET PO PRN (03:33)
--- NOTE | 2016-08-18 03:35 | NUR ---
RN note PRN Robaxin Pt c/o generalized muscle pain=09/04. MARBELLA Otto, administered Robaxin 750 mg PO as ordered. Will reassess.
[2016-08-18 04:00] VITALS: BP 152/88
--- NOTE | 2016-08-18 04:30 | NUR ---
RN note reassess Pt verbalized pain level=3/10. Robaxin effective.
[2016-08-18] MEDS: PANTOPRAZOLE SODIUM 40 MG TABLET.DR PO SCH (06:08)
--- NOTE | 2016-08-18 07:03 | NUR ---
End of Shift Patient is a 60-year old, male, admitted for Opiate and Benzo dependence. Placed on a 5-day Subutex and 4-day Ativan taper, both started on 08/13/2016 and with no adverse side effects noted. With PMHx of Anxiety and Heart Valve Replacement in 2007. Pt on Coumadin and PT/INR checked daily while inpatient. Pt with NKA, is on Regular Diet and Full Code. Pt is AAOx4, with mild anxiety noted at this time. No SOB noted, not in respi distress. Pt is ambulatory with steady gait and with intact skin. Fall, universal and safety prec in place. Call light within reach. All needs met. Pt with SCD pumps at bedside but refused to be attached to it despite explanation of risks and benefits. Latest COWS=3, CIWA=2, slept for 2 hours. Endorsed to AM shift nurse for continuity of care.
--- NOTE | 2016-08-18 07:32 | NUR ---
START OF SHIFT NOTE: Received report from night baker nurse. Patient is a 60 y/o male admitted 08/12/16 for Opiate and Benzo dependence. Pt completed a 5 day Subutex and 5 day Ativan taper. To be discharged this AM. Pt is alert and oriented X4. Color good, skin warm and dry. Respirations even and unlabored. Pt resting in bed. Safety precautions observed. Call light within reach. Will continue to monitor.
[2016-08-18] MEDS: MULTIVITAMINS,THERAPEUTIC TABLET PO SCH (07:52)
[2016-08-18] MEDS: GABAPENTIN 300 MG CAPSULE PO SCH (07:52)
[2016-08-18] MEDS: DULOXETINE 30 MG CAPSULE.DR PO SCH (07:52)
[2016-08-18] MEDS: DOCUSATE SODIUM 250 MG CAPSULE PO SCH (07:52)
[2016-08-18] MEDS: ASPIRIN/ACETAMINOPHEN/CAFFEINE TABLET PO PRN (07:53)
[2016-08-18] MEDS: CLONIDINE HCL 0.1 MG TABLET PO PRN (07:53)
[2016-08-18] MEDS: CARVEDILOL 25 MG TABLET PO SCH (07:53)
[2016-08-18 07:54] VITALS: BP 160/90
[2016-08-18] MEDS: ENALAPRIL 5 MG TABLET PO SCH (07:54)
--- NOTE | 2016-08-18 08:00 | NUR ---
Pt c/o headache and anxiety. Excedrin 2 tabs po prn and Clonidine 0.1 mg po prn given
--- NOTE | 2016-08-18 09:00 | NUR ---
Pt states headache improved after Excedrin and Clonidine prn. Discharge papers and medication bags signed.
--- NOTE | 2016-08-18 09:30 | NUR ---
Pt discharged in stable condition with all valuables, belongings and home medications. Denies SI/HI. To [place] via [employer] private car.
[2016-08-19 00:12] LABS: *BENZODIAZEPINES Negative (Cutoff=300); *OPIATES Negative ng/mL (Cutoff=300)
== END 2016-08-18 09:30 | disposition other institution (70) | DRG 895 ==
LOC: SRC 08-12 09:47
PROVIDERS: ADMIT Internal Medicine; ATTEND Internal Medicine
PROC: HZ2ZZZZ Detoxification Services for Substance Abuse Treatment (ICD-10-PCS; principal; 2016-08-12)
PROC: HZ41ZZZ Group Counseling for Substance Abuse Treatment, Behavioral (ICD-10-PCS; 2016-08-13)
PROC: HZ31ZZZ Individual Counseling for Substance Abuse Treatment, Behavioral (ICD-10-PCS; 2016-08-14)
DX: F11.23 Opioid dependence with withdrawal (principal); F13.230 Sedative, hypnotic or anxiolytic dependence with withdrawal, uncomplicated; F32.9 Major depressive disorder, single episode, unspecified; K21.9 Gastro-esophageal reflux disease without esophagitis; Z79.01 Long term (current) use of anticoagulants; Z79.899 Other long term (current) drug therapy; Z81.4 Family history of other substance abuse and dependence; E29.1 Testicular hypofunction; G89.29 Other chronic pain; Z95.2 Presence of prosthetic heart valve; Z87.442 Personal history of urinary calculi; I11.0 Hypertensive heart disease with heart failure; I48.91 Unspecified atrial fibrillation; I50.9 Heart failure, unspecified; F41.9 Anxiety disorder, unspecified
CPT/HCPCS: 36415; 70030-TC; 80307; 80346; 80361; 83735; 84403; 85025; 85610; 86580; 86592; 86705; 86803; 87340; 87806; 90732; A4663; G6040-TC; Q0162